=== PATIENT | male | born 1975 | race Caucasian/White ===

== ENCOUNTER → 2017-07-27 17:12 | Outpatient (CLI) | payer BC, SELFPAY ==
[2017-07-27 18:03] LABS: Absolute Lymphocyte Count 4.02 X10^3/ul (0.83-4.51); Absolute Neutrophil Count 3.6 X10^3/uL (2.0-7.7); Basophil# 0.02 X10^3/uL; Basophil% 0.2 % (0-1); Eosinophil# 0.37 X10^3/uL; Eosinophils% 4.3 % (0-5); Hemoglobin 14.1 g/dl (13.0-16.5); Lymphocyte # 4.02 X10^3/ul (4.0); Lymphocyte % 46.8 % (19-41); Mean Corp Hgb Conc 33.6 g/gl (32-36); Mean Corpuscular Hgb 31.7 pg (27.0-32.0); Mean Corpuscular Volume 94.4 fL (80-94); Mean Platelet Vol. 9.4 fl (6.2-12.0); Monocyte# 0.54 X10^3/uL; Monocyte% 6.3 % (0-10); Neutrophil # 3.64 X10^3/uL (2.7-7.7); Neutrophil % 42.4 % (47-70); Platelet Count 195 K/mm3 (150-450); RBC Distribution Width CV 12.7 % (11.6-14.6); RBC Distribution Width SD 43.9 fl (35.1-43.9); Red Blood Count 4.45 M/mm3 (4.6-6.2); White Blood Count 8.6 K/mm3 (4.4-11.0)
[2017-07-27 18:16] LABS: POSITIVE COUNT NO; POSITIVE DIFFERENTIAL NO; POSITIVE MORPHOLOGY NO
[2017-07-27 18:41] LABS: Anion Gap 7 (5-15); BUN 13 mg/dL (7-18); BUN/Creat Ratio 16.2 RATIO (10-20); Calcium,Total 8.3 mg/dL (8.5-10.1); Chloride 110 mmol/L (98-107); EST Glomerular Filtration Rate 113 mL/min (>60); Est Glom Filt Rate - Afr Amer 137 mL/min (>60); Glucose 79 mg/dL (74-106); Magnesium 2.3 mg/dL (1.6-2.6); Potassium 3.7 mmol/L (3.5-5.1); Sodium Level 142 mmol/L (136-145); T4 Free Direct 0.95 ng/dL (0.76-1.46); Thyroid Stim Hormone (TSH) 0.74 uIU/mL (0.358-3.74)
== END ==
PROVIDERS: Family Provider Family Medicine; PCP Family Medicine; Visit Provider Family Medicine
DX: R55 Syncope and collapse (principal)
CPT/HCPCS: 36415; 80048; 83735; 84439; 84443; 85025

== ENCOUNTER 2017-10-02 19:20 | Emergency (ER) | payer BC, SELFPAY ==
[2017-10-02 19:21] VITALS: BP 112/68; PULSE 62; RESP 18; TEMP 37.1; O2SAT 99; BMI 25.1
--- NOTE | 2017-10-02 20:20 | ED.VISSUMM ---
- ER Visit Summary Date of Service: 10/02/17 Chief Complaint: Leg injury History of Present Illness: The patient is a 42 M was walking at a hardware store today when a nail in a pocket caused a laceration to his lateral right leg. He also states he believes he got stung on his dorsum of his left hand by a horse fly this morning. He states that his left hand is swollen. Denies any redness or fevers. States he does not have an allergy that he knows of. Last tetanus is unknown Physical Examination: Afebrile vital signs are stable Left hand is diffusely swollen there is no erythema. I do not see an obvious stinger. There is no lymphangitis Lateral distal right leg demonstrates a 2.5 cm partial-thickness laceration. There is no active bleeding. Emergency Department Course and Treatment: Tetanus was updated. Wound was washed with Shur-Clens and closed with Dermabond. Patient was advised on ice and Benadryl for the local reaction of the left hand. Return if worsening or concerns Impression: 1. 2.5 cm right leg laceration with repair 2. Hymenoptera envenomation with local reaction to the left hand 3. Tetanus update This note was generated with [employer] dictation software. It may contain incorrect words, spelling, and punctuation that were not noted in review of the chart prior to signing ED Disposition - Plan for ED Patient: Disposition: Home or Assisted Living Chief Complaint: Wound Instructions: ED Bite Sting Insect Local Allergic React, ED Laceration Ext Skin Glue Referrals: Armond Moss DO [Primary Care Provider] - As Needed
[2017-10-02 20:37] VITALS: PULSE 60; RESP 16
--- NOTE | 2017-10-02 20:37 | NURSING ---
NO REACTION NOTED FROM TD.
== END 2017-10-02 20:37 | disposition home or self-care (01) ==
LOC: ED 20:31
PROVIDERS: Emergency Provider Emergency Medicine; Family Provider Family Medicine; PCP Family Medicine
DX: S81.811A Laceration without foreign body, right lower leg, initial encounter (principal); W45.0XXA Nail entering through skin, initial encounter; Y93.01 Activity, walking, marching and hiking; Y92.512 Supermarket, store or market as the place of occurrence of the external cause; T63.441A Toxic effect of venom of bees, accidental (unintentional), initial encounter; M79.89 Other specified soft tissue disorders
CPT/HCPCS: 12001; 90715; 99283

== ENCOUNTER 2018-01-24 20:19 | Emergency (ER) | payer BC, SELFPAY ==
[2018-01-24 20:19] VITALS: BP 124/73; PULSE 77; RESP 16; TEMP 36.6; O2SAT 98; BMI 25.2
[2018-01-24 21:09] VITALS: RESP 16
--- NOTE | 2018-01-24 21:38 | CT_ITS ---
STUDY: CT BRAIN WITHOUT CONTRAST REASON FOR EXAM: Male, 42 years old. Left side paresthesias. RADIATION DOSAGE (If Supplied By Facility): CTDIvol = ( 44.99 ) mGy, DLP = ( 745.49 ) mGycm TECHNIQUE: Transaxial CT imaging of the brain was performed without administration of intravenous contrast material. Individualized dose optimization techniques were used for this CT. COMPARISON: None. FINDINGS: Normal soft tissue structures. Normal calvarium. Normal size ventricles and extra-axial spaces for the patient's age. Normal white matter tracts of the cerebral hemispheres. Normal basal ganglia and thalami. Normal brainstem. Normal cerebellum. There is no intracranial hemorrhage. There are no findings of an acute ischemic infarction. Normal visualized paranasal sinuses. CT/Brain/Head without Contrast IMPRESSION: Normal unenhanced CT scan of the brain. Electronically Signed: Bianca Reyes MD at 22:33 EDT Tel , Service support ,
--- NOTE | 2018-01-24 22:58 | ED.DCSUM_ITS ---
- ER Visit Summary Date of Service: 01/24/18 Chief Complaint: [Numbness and tingling to left face] History of Present Illness: The patient is a 42 M [sense to emergency department with complaint of numbness to the left side of his face that started initially yesterday. Patient states the numbness would come and go]. Patient states the odd sensation to the left side of his face is now continuous over the last 5 hours. Patient also mentions that he has some lesions to the roof of his mouth that he has had for about a week. Denies any fever or recent illness. He denies sore throat. Patient denies any headache currently. He denies any weakness in extremities. He denies any falls or head injuries. He denies any weight loss. Patient does state that he has been getting headaches about twice a week. No family history of brain tumors or aneurysms. Physical Examination: [HEENT-PERRLA, EOMI. Cranial nerves II through XII grossly intact. TMs clear. Mucous membranes moist. No adenopathy. Patient has slight decreased sensation left side of the face compared to the right side of the face. No facial droop noted. Patient is able to wrinkle both sides of the forehead. Evaluation of the roof of the mouth does reveal some small shallow ulcerations. Cardiovascular-regular rate and rhythm without murmur or ectopy Lungs-clear to auscultation, chest wall stable without crepitus or subcu emphysema Abdomen-normoactive bowel sounds, soft, nontender, no rebound or rigidity, no peritoneal signs. Neuro plfr-[id number] and heel moreno testing within normal limits, negative Romberg, negative pronator, fundi benign Extremities-intact ?4, normal range of motion, normal pulses, atraumatic] Test Results: [CT scan of the brain without contrast was read as normal.] Emergency Department Course and Treatment: [Patient will be started on prednisone.] Treatment Plan: [Patient will be treated with prednisone and Famvir. Patient will be referred to ENT for follow-up. Etiologies of symptoms is unclear however it is possible he may be developing a Abreu's palsy. I believe the ulcerations of the roof of the mouth may be viral in etiology. 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 It may contain incorrect words, spelling, and punctuation that were not noted in review of the chart prior to signing ED Disposition - Plan for ED Patient: Chief Complaint: Other, Pain/Inj Referrals: Armond Moss DO [Primary Care Provider] -
--- NOTE | 2018-01-24 22:58 | ED.DEP ---
ED Disposition - Plan for ED Patient: Chief Complaint: Other, Pain/Inj Instructions: ED [place] Palsy, ED Paraesthesias Prescriptions: Prednisone [Deltasone] 20 mg PO BID #14 tab Famciclovir [Famvir] 500 mg PO TID #21 tab Referrals: Armond Moss DO [Primary Care Provider] - Danilo Alcantara MD [STAFF PHYSICIAN] - 3-5 Days
[2018-01-24 23:09] VITALS: BP 130/72; PULSE 75; RESP 16; O2SAT 100
== END 2018-01-24 23:10 | disposition home or self-care (01) ==
LOC: ED 21:52
PROVIDERS: Emergency Provider Emergency Medicine; Family Provider Family Medicine; PCP Family Medicine
DX: R20.2 Paresthesia of skin (principal); K13.79 Other lesions of oral mucosa; Z72.0 Tobacco use
CPT/HCPCS: 70450; 99282

== ENCOUNTER → 2018-04-23 16:13 | Outpatient (CLI) | payer BC, SELFPAY ==
--- NOTE | 2018-04-23 16:16 | RAD_ITS ---
HISTORY: tobacco abuse EXAM: XR Chest 2 Views: COMPARISON: None FINDINGS: Normal heart size. An azygous lobe is present. Mild hyperinflation. No vascular congestion, pleural effusion, or acute pulmonary infiltration. No pneumothorax. The bony thorax appears intact. RAD/Chest PA and Lateral IMPRESSION: 1. No acute cardiopulmonary disease. 2. Mild hyperinflation. at 0736 Reported and signed by: Tre Foster MD Electronically Signed: Tre Foster, at 7:34 EST Tel , Service support ,
--- OUTSIDE RECORDS SUMMARY | 2018-07-28 07:11 | XMS RPT_ITS ---
:1975 Author Organization OH[facility] Care Team Providers Name Role Phone Armond Moss Attending Unavailable Armond Moss Referring Unavailable Armond Moss Primary Care Unavailable Armond Moss Attending Unavailable Armond Moss Referring Unavailable Armond Moss Primary Care Unavailable Armond Moss Primary Care Unavailable Kendall Mobley Attending Unavailable Armond Moss Primary Care Unavailable Danya Rajan Attending Unavailable PROBLEMS PROBLEMS DATE TYPE CONDITION / CODE ATTENDING STATUS SOURCE 07/27/2017 Unknown R55 - Syncope Armond Moss Active [place] and collapse / Community R55(ICD-10) Hospital Repository PROCEDURES PROCEDURES No Procedure Records FoundRESULTS RESULTS CHEST PA AND LATERAL Observed: 04/23/2018 Status: F Source: [place]UA 4:16 PM REPOSITORY [facility] Imaging Services [address] [place] [address] Chest PA and Lateral MR#: [id number] Acct: [id number] Name: BRET LOZANO Rep #: [id number] : 1975 M 43 From: Tre Foster MD PCP: Armond Moss DO Status: REG CLI Study: Chest PA and Lateral Date of Exam: 04/23/18 Exam# [id number] Ordering Dr: Armond Moss DO HISTORY: tobacco abuse EXAM: XR Chest 2 Views: COMPARISON: None FINDINGS: Normal heart size. An azygous lobe is present. Mild hyperinflation. No vascular congestion, pleural effusion, or acute pulmonary infiltration. No pneumothorax. The bony thorax appears intact. RAD/Chest PA and Lateral IMPRESSION: 1. No acute cardiopulmonary disease. 2. Mild hyperinflation. at 0736 Reported and signed by: Tre Foster MD Electronically Signed: Tre Foster, at 7:34 EST Tel , Service support , CC: Armond Moss DO Gas Well Pumper: Signed DISCHARGE INSTRUCTION Observed: 01/24/2018 Status: F Source: [place] 11:00 PM REPOSITORY [facility] Medical Records Department [address] [place] [address] Discharge Instruction 01/24/18 2258 MR#: [id number] Acct: [id number] Name: BRET LOZANO Rep #: [id number] : 1975 42 From: Danya Rajan DO PCP: Armond Moss DO Status: REG ER ED Disposition - Plan for ED Patient: Chief Complaint: Other, Pain/Inj Instructions: ED [place] Palsy, ED Paraesthesias Prescriptions: Prednisone [Deltasone] 20 mg PO BID #14 tab Famciclovir [Famvir] 500 mg PO TID #21 tab Referrals: Armond Moss DO [Primary Care Provider] - Danilo Alcantara MD [STAFF PHYSICIAN] - 3-5 Days What to do if you have Problems For any increased pain, shortness of breath, bleeding, nausea or vomiting, chest pain, or any unexpected problems, contact your Primary Care Provider. Call [facility] ([phone]) or report to the closest Emergency Room. Call 911 if necessary. 01/24/18 2300 <Electronically signed by Danya Rajan DO> Date Danya Rajan DO Cosigner Signature (If Indicated): Date CC: Armond Moss DO EMERGENCY DEPARTMENT Observed: 01/24/2018 Status: F Source: [place] SUMMARY 10:58 PM REPOSITORY [facility] Medical Records Department [address] [place] [address] Emergency Department Summary 01/24/18 2254 MR#: [id number] Acct: [id number] Name: BRET LOZANO Rep #: [id number] : 1975 42 From: Danya Rajan DO PCP: Armond Moss DO Status: REG ER - ER Visit Summary Date of Service: 01/24/18 Chief Complaint: [Numbness and tingling to left face] History of Present Illness: The patient is a 42 M [sense to emergency department with complaint of numbness to the left side of his face that started initially yesterday. Patient states the numbness would come and go]. Patient states the odd sensation to the left side of his face is now continuous over the last 5 hours. Patient also mentions that he has some lesions to the roof of his mouth that he has had for about a week. Denies any fever or recent illness. He denies sore throat. Patient denies any headache currently. He denies any weakness in extremities. He denies any falls or head injuries. He denies any weight loss. Patient does state that he has been getting headaches about twice a week. No family history of brain tumors or aneurysms. Physical Examination: [HEENT-PERRLA, EOMI. Cranial nerves II through XII grossly intact. TMs clear. Mucous membranes moist. No adenopathy. Patient has slight decreased sensation left side of the face compared to the right side of the face. No facial droop noted. Patient is able to wrinkle both sides of the forehead. Evaluation of the roof of the mouth does reveal some small shallow ulcerations. Cardiovascular-regular rate and rhythm without murmur or ectopy Lungs-clear to auscultation, chest wall stable without crepitus or subcu emphysema Abdomen-normoactive bowel sounds, soft, nontender, no rebound or rigidity, no peritoneal signs. Neuro [id number] and heel moreno testing within normal limits, negative Romberg, negative pronator, fundi benign Extremities-intact 4, normal range of motion, normal pulses, atraumatic] Test Results: [CT scan of the brain without contrast was read as normal.] Emergency Department Course and Treatment: [Patient will be started on prednisone.] Treatment Plan: [Patient will be treated with prednisone and Famvir. Patient will be referred to ENT for follow-up. Etiologies of symptoms is unclear however it is possible he may be developing a Abreu's palsy. I believe the ulcerations of the roof of the mouth may be viral in etiology. 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 It may contain incorrect words, spelling, and punctuation that were not noted in review of the chart prior to signing ED Disposition - Plan for ED Patient: Chief Complaint: Other, Pain/Inj Referrals: Armond Moss, DO [Primary Care Provider] - What to do if you have Problems For any increased pain, shortness of breath, bleeding, nausea or vomiting, chest pain, or any unexpected problems, contact your Primary Care Provider. Call [facility] ([phone]) or report to the closest Emergency Room. Call 911 if necessary. 01/24/18 8302 <Electronically signed by Danya Rajan DO> Date Danya Rajan DO Cosigner Signature (If Indicated): Date CC: Armond Moss DO BRAIN/HEAD WITHOUT Observed: 01/24/2018 Status: F Source: [place] CONTRAST 9:39 PM REPOSITORY [facility] Imaging Services [address] [place] [address] Brain/Head without Contrast MR#: [id number] Acct: [id number] Name: BRET LOZANO Rep #: [id number] : 1975 M 42 From: Bianca Reyes MD PCP: Armond Moss DO Status: REG ER Study: Brain/Head without Contrast Date of Exam: 01/24/18 Exam# [id number] Ordering Dr: Danya Rajan DO STUDY: CT BRAIN WITHOUT CONTRAST REASON FOR EXAM: Male, 42 years old. Left side paresthesias. RADIATION DOSAGE (If Supplied By Facility): CTDIvol = ( 44.99 ) mGy, DLP = ( 745.49 ) mGycm TECHNIQUE: Transaxial CT imaging of the brain was performed without administration of intravenous contrast material. Individualized dose optimization techniques were used for this CT. COMPARISON: None. FINDINGS: Normal soft tissue structures. Normal calvarium. Normal size ventricles and extra-axial spaces for the patient's age. Normal white matter tracts of the cerebral hemispheres. Normal basal ganglia and thalami. Normal brainstem. Normal cerebellum. There is no intracranial hemorrhage. There are no findings of an acute ischemic infarction. Normal visualized paranasal sinuses. CT/Brain/Head without Contrast IMPRESSION: Normal unenhanced CT scan of the brain. Electronically Signed: Bianca Reyes MD at 22:33 EDT Tel , Service support , CC: Armond Moss DO; Danya Rajan DO Gas Well Pumper: Signed EMERGENCY DEPARTMENT Observed: 10/03/2017 Status: F Source: [place] SUMMARY 1:26 AM REPOSITORY [facility] Medical Records Department [address] [place] [address] Emergency Department Summary 10/02/172019 MR#: [id number] Acct: [id number] Name: BRET LOZANO Rep #: [id number] : 1975 42 From: Kendall Mobley DO PCP: Armond Moss DO Status: DEP ER - ER Visit Summary Date of Service: 10/02/17 Chief Complaint: Leg injury History of Present Illness: The patient is a 42 M was walking at a hardware store today when a nail in a pocket caused a laceration to his lateral right leg. He also states he believes he got stung on his dorsum of his left hand by a horse fly this morning. He states that his left hand is swollen. Denies any redness or fevers. States he does not have an allergy that he knows of. Last tetanus is unknown Physical Examination: Afebrile vital signs are stable Left hand is diffusely swollen there is no erythema. I do not see an obvious stinger. There is no lymphangitis Lateral distal right leg demonstrates a 2.5 cm partial-thickness laceration. There is no active bleeding. Emergency Department Course and Treatment: Tetanus was updated. Wound was washed with Shur-Clens and closed with Dermabond. Patient was advised on ice and Benadryl for the local reaction of the left hand. Return if worsening or concerns Impression: 1. 2.5 cm right leg laceration with repair 2. Hymenoptera envenomation with local reaction to the left hand 3. Tetanus update This note was generated with Makoondi dictation software. It may contain incorrect words, spelling, and punctuation that were not noted in review of the chart prior to signing ED Disposition - Plan for ED Patient: Disposition: Home or Assisted Living Chief Complaint: Wound Instructions: ED Bite Sting Insect Local Allergic React, ED Laceration Ext Skin Glue Referrals: Armond Moss DO [Primary Care Provider] - As Needed What to do if you have Problems For any increased pain, shortness of breath, bleeding, nausea or vomiting, chest pain, or any unexpected problems, contact your Primary Care Provider. Call [facility] ([phone]) or report to the closest Emergency Room. Call 911 if necessary. 10/03/17 0126 <Electronically signed by Kendall Mobley DO> Date Kendall Mobley DO Cosigner Signature (If Indicated): Date CC: Armond Moss DO CBC W/DIFF, AUTOMATED Collected: 07/27/2017 Status: F Source: [place] 5:26 PM REPOSITORY TYPE CODE TESTS RESULT OUT OF RANGE REFERENCE UNITS LAB L100.1000 4.4-11.0 K/mm3 Normal WBC 8.6 LAB L100.1200 4.6-6.2 M/mm3 Low RBC 4.45 LAB L100.1300 13.0-16.5 g/dl Normal HGB 14.1 LAB L100.1400 40-54 % Normal HCT 42.0 LAB L100.1500 80-94 fL High MCV 94.4 LAB L100.1600 27.0-32.0 pg Normal MCH 31.7 LAB L100.1700 32-36 g/gl Normal MCHC 33.6 LAB L100.1810 11.6-14.6 % Normal RDW CV 12.7 LAB L100.1820 35.1-43.9 fl Normal RDW SD 43.9 LAB L100.1900 150-450 K/mm3 Normal PLT 195 LAB L100.2000 6.2-12.0 fl Normal MPV 9.4 LAB L100.2100 47-70 % Low NEUT% 42.4 LAB L100.2200 19-41 % High LY% 46.8 LAB L100.2300 0-10 % Normal MONO% 6.3 LAB L100.2400 0-5 % Normal EO% 4.3 LAB L100.2500 0-1 % Normal BASO% 0.2 LAB L100.2550 0.0-0.9 % Normal IM GRAN % 0.000 Result Comment: IG% - Immature Granulocytes (promyelocytes, myelocytes and metamyelocytes) > 1% indicates that a LEFT SHIFT is Present. LAB L100.2620 2.0-7.7 X10 3/uL Normal Absolute Neut 3.6 LAB L100.2720 0.83-4.51 X10 3/ul Normal Absolute Lymph 4.02 Performed By: #### L100.0100 #### [facility] [address] [facility] [place], [place], [address] BASIC METABOLIC Collected: 07/27/2017 Status: F Source: [place] PROFILE (BMP) 5:26 PM REPOSITORY Order Comment: Has Patient had X-rays with Contrast this admission? N Is Patient on Heparin? N TYPE CODE TESTS RESULT OUT OF RANGE REFERENCE UNITS LAB L501.0100 74-106 mg/dL Normal GLU 79 Result Comment: Please note revised GLUCOSE reference range effective 2017. LAB L501.1000 7-18 mg/dL Normal BUN 13 LAB L501.1100 0.70-1.30 mg/dL Normal CREAT,SERUM 0.80 Result Comment: The validity of the calculated GFR AND GFRAA in patients over 70 years has not been determined. Clinical correlation is essential. LAB L501.1110 >60 mL/min Normal EST GFR 113 Result Comment: Non- GFR Calc LAB L501.1115 >60 mL/min Normal EST GFR - AA 137 Result Comment: GFR Calc LAB L501.1300 10-20 RATIO Normal BUN/CRE 16.2 LAB L501.2200 8.5-10.1 mg/dL Low CA 8.3 LAB L501.5300 136-145 mmol/L NA Normal 142 LAB L501.5600 3.5-5.1 mmol/L K Normal 3.7 LAB L501.5900 98-107 mmol/L High CL 110 LAB L501.6100 21.0-32.0 mmol/L Normal CO2 25.0 LAB L501.6200 5-15 Normal GAP 7 Performed By: #### L500.2500, L501.5200, L501.9520, L506.0400 #### [facility] [address] [place], [address] MAGNESIUM Collected: 07/27/2017 Status: F Source: [place] 5:26 PM REPOSITORY Order Comment: Has Patient had X-rays with Contrast this admission? N Is Patient on Heparin? N TYPE CODE TESTS RESULT OUT OF RANGE REFERENCE UNITS LAB L501.5200 1.6-2.6 mg/dL Normal MG 2.3 Result Comment: Please note revised Magnesium reference range effective 2017. Performed By: #### L500.2500, L501.5200, L501.9520, L506.0400 #### [facility] [address] [place], [address] THYROID STIM HORMONE Collected: 07/27/2017 Status: F Source: [place] (TSH) 5:26 PM REPOSITORY Order Comment: Has Patient had X-rays with Contrast this admission? N Is Patient on Heparin? N TYPE CODE TESTS RESULT OUT OF RANGE REFERENCE UNITS LAB L501.9520 0.358-3.74 uIU/mL Normal TSH 0.74 Performed By: #### L500.2500, L501.5200, L501.9520, L506.0400 #### [facility] [address] [place], [address] T4 FREE DIRECT Collected: 07/27/2017 Status: F Source: [place] 5:26 PM REPOSITORY Order Comment: Has Patient had X-rays with Contrast this admission? N Is Patient on Heparin? N TYPE CODE TESTS RESULT OUT OF RANGE REFERENCE UNITS LAB L506.0400 0.76-1.46 ng/dL Normal T4 FREE 0.95 DIRECT Performed By: #### L500.2500, L501.5200, L501.9520, L506.0400 #### [facility] [address] [place], [address] ALLERGIES ALLERGIES DATE TYPE / CODE NAME / CODE REACTION SEVERITY SOURCE 01/24/2018 Drug No Known Unknown [facility] Allergy/4160 Allergies/F00 Hospital 24053(SNOMED 2931339(RXNOR Repository CT) M) ENCOUNTERS ENCOUNTERS ADMIT/DISCHARGE ACCOUNT ADMITTING ENCOUNTER LOCATION SOURCE NUMBER CLASS 04/23/2018 [id number] Ambulatory [place] 4 [facility] ing:MTRAD Repository 01/24/2018/ [id number] Emergency [place] 8 4 [facility] ing:ED Repository 10/02/2017/ [id number] Emergency Hua [place] 8 3 [facility] ing:ED Repository 07/27/2017 [id number] Ambulatory [place] 5 [facility] ing:LAB Repository PAYERS PAYERS ENCOUNTER GUARANTOR PAYER SUBSCRIBER SOURCE 04/23/2018 BRET K Primary BRET K Hua [id number] Insurance:ANTHEMPolic [place]: Community TERE [id number] [id number] Repository [address]Llk: (330) Date:[phone] () NED [place] [id number]: 04/23/2018 Secondary NOT GIVENUNK [place] Insurance:SELF PAY [facility] Number: Effective Repository Date:2018-04-23 01/24/2018 BRET K Primary BRET K [place] [id number] Insurance:ANTHEMPolic [place]: Community TERE [place]: [id number] [id number] Repository [address]Ahe: (330) Date:4404-87-73LI [phone] () [id number] MCINTOSH [address]AL: 01/24/2018 Secondary NOT GIVENUNK [place] Insurance:SELF PAY [facility] Number: Effective Repository Date:2018-01-24 10/02/2017 BRET K Primary BRET K [place] [id number] Insurance:ANTHEMPolic [place]: Community Tere y Number: [id number] [id number] Repository [address]Jga: (330) Date:5908-33-53[phone] () NED [place] [id number]: 10/02/2017 Secondary NOT GIVENUNK [place] Insurance:SELF PAY [facility] Number: Effective Repository Date:2017-10-02 07/27/2017 BRET [place] Primary BRET [id number] Insurance:ANTHEMPolic [place]: Community Tere y Number: [id number] [id number] Repository [address]Rry: 330) Date:5130-77-62VX [phone] () [id number], [place] [address]ND: 07/27/2017 Secondary NOT GIVENUNK [place] Insurance:SELF PAY [facility] Number: Effective Repository Date:2017-07-27
== END ==
PROVIDERS: Family Provider Family Medicine; PCP Family Medicine; Referring Provider Family Medicine; Visit Provider Family Medicine
DX: R05 Cough (principal); Z72.0 Tobacco use
CPT/HCPCS: 71046

== ENCOUNTER 2018-06-17 09:49 | Emergency (ER) | payer BC, SELFPAY ==
[2018-06-17 09:50] VITALS: BP 108/72; PULSE 60; RESP 18; TEMP 36.6; O2SAT 98; BMI 24.3
--- NOTE | 2018-06-17 10:06 | CT_ITS ---
STUDY: CT ABDOMEN AND PELVIS WITHOUT CONTRAST REASON FOR EXAM: Male, 43 years old. Right flank pain. RADIATION DOSAGE (If Supplied By Facility): CTDIvol = ( 7.15 ) mGy, DLP = ( 337.53 ) mGycm TECHNIQUE: Transaxial images were obtained from the dome of the diaphragm to the symphysis pubis without oral contrast, and without intravenous contrast. Sagittal and coronal images were reconstructed. Individualized dose optimization techniques were used for this CT. COMPARISON: None. FINDINGS: Minimal increased markings at the lung bases suggestive of atelectasis. The visualized portions of the heart are within normal limits. Normal liver. Normal gallbladder and extrahepatic biliary system. Normal spleen. Normal pancreas. Normal bilateral adrenal glands. Normal right kidney. A 2 mm calcification is seen in the right hemipelvis. This appears to lie outside the ureter. This most likely represents a phlebolith. Normal left kidney. Normal visualized stomach. Normal small intestine. Normal colon. The appendix is visualized and appears normal. Normal abdominal aorta. Normal inferior vena cava. Normal retroperitoneum. Normal urinary bladder. There is a small umbilical hernia containing fat. Spondylolysis of the pars interarticularis of the L5 vertebra. CT/Abdomen/Pelvis without Cont IMPRESSION: 2 mm calcification in the right hemipelvis which appears to lie outside the ureter. This most likely represents a phlebolith. Spondylolysis of the pars interarticularis at the L5 vertebrae Electronically Signed: Dilan Fried MD at 11:25 EST , Service support ,
[2018-06-17 10:29] LABS: Absolute Lymphocyte Count 3.33 X10^3/ul (0.83-4.51); Absolute Neutrophil Count 4.3 X10^3/uL (2.0-7.7); Basophil# 0.02 X10^3/uL; Basophil% 0.2 % (0-1); Eosinophil# 0.26 X10^3/uL; Eosinophils% 3.2 % (0-5); Hematocrit 45.1 % (40-54); Hemoglobin 15.3 g/dl (13.0-16.5); Lymphocyte # 3.33 X10^3/ul (4.0); Lymphocyte % 40.9 % (19-41); Mean Corp Hgb Conc 33.9 g/gl (32-36); Mean Corpuscular Hgb 32.2 pg (27.0-32.0); Mean Corpuscular Volume 94.9 fL (80-94); Mean Platelet Vol. 9.3 fl (6.2-12.0); Monocyte# 0.28 X10^3/uL; Monocyte% 3.4 % (0-10); Neutrophil # 4.25 X10^3/uL (2.7-7.7); Neutrophil % 52.2 % (47-70); Platelet Count 189 K/mm3 (150-450); RBC Distribution Width CV 12.4 % (11.6-14.6); RBC Distribution Width SD 43.1 fl (35.1-43.9); Red Blood Count 4.75 M/mm3 (4.6-6.2); White Blood Count 8.2 K/mm3 (4.4-11.0)
[2018-06-17 10:31] LABS: Bacteria 0 SEEN /hpf (None Seen); Mucous, Urine 0 SEEN /hpf (<or=2+); Red Blood Cells-Urine 0 SEEN /hpf (0-5); Squamous Epithelial Cells - UA 0 SEEN /hpf (0-5); White Blood Cells 0 SEEN /hpf (0-5)
[2018-06-17 10:31] LABS: POSITIVE COUNT NO; POSITIVE DIFFERENTIAL NO; POSITIVE MORPHOLOGY NO
[2018-06-17 10:36] LABS: Color, Urine Yellow (Yellow); Glucose, Dipstick Normal (Normal); Ketone-Dipstick Negative (Negative); Leukocyte Esterase-Dipstick Negative /ul (Negative); Nitrite-Dipstick Negative (Negative); Occult Blood-Urine Negative /ul (Negative); Protein-Dipstick Negative (Negative); Specific Gravity, Urine 1.015 (1.002-1.030); Urine Bilirubin Dipstick Negative (Negative); Urine Clarity Clear (Clear); Urine Urobilinogen Normal (Normal)
[2018-06-17 10:45] LABS: Anion Gap 7 (5-15); BUN 10 mg/dL (7-18); BUN/Creat Ratio 11.1 RATIO (10-20); Calcium,Total 8.7 mg/dL (8.5-10.1); Chloride 106 mmol/L (98-107); EST Glomerular Filtration Rate 99 mL/min (>60); Est Glom Filt Rate - Afr Amer 120 mL/min (>60); Estimated Creatinine Clearance 111.53 ml/min; Glucose 72 mg/dL (74-106); Potassium 4.1 mmol/L (3.5-5.1); Sodium Level 139 mmol/L (136-145)
--- NOTE | 2018-06-17 12:17 | ED.DCSUM_ITS ---
- ER Visit Summary Date of Service: 06/17/18 Chief Complaint: Pain History of Present Illness: The patient is a 43 M with right flank pain. This started 2 days ago, in the evening. It came on suddenly. It does not radiate. It is constant. He does have urinary frequency but denies any other urinary symptoms. No history of this in the past. No abdominal or GI symptoms. No weakness or numbness. No traumas or inciting events. Physical Examination: Afebrile and vital signs unremarkable. Alert and oriented, uncomfortable but no acute distress. Skin appears normal without rash. Spine nontender. Right flank tender to palpation. Abdomen soft and nontender. Exam otherwise unremarkable. Test Results: CBC, BMP, urinalysis unremarkable. CT abdomen showed a 2 mm calculus which appears to be outside the right ureter, likely a phlebolith. He also has spondylosis of L5. Emergency Department Course and Treatment: Patient declined pain medicine. His symptoms were concerning for ureteral colic. CT shows a calculus but it appears to be outside the ureter. Even if it is, it is 2 mm and unlikely to need any kind of surgery or procedure. It would likely pass spontaneously. He has no other findings to suggest he has a kidney stone. Urinalysis is unremarkable. Lab work is all reassuring. Vitals are reassuring. Patient is appropriate for outpatient follow-up. He would like to continue taking ibuprofen. Follow-up with primary care. Return right away for any new or worsening issues. Treatment Plan: Above Disposition: Discharge Impression: 1. Right flank pain This note was generated with [employer] dictation software. It may contain incorrect words, spelling, and punctuation that were not noted in review of the chart prior to signing ED Disposition - Plan for ED Patient: Referrals: Armond Moss DO [Primary Care Provider] -
--- NOTE | 2018-06-17 12:17 | ED.DEP ---
ED Disposition - Plan for ED Patient: Instructions: ED Flank Pain Uncertain Cause Referrals: Armond Moss DO [Primary Care Provider] -
[2018-06-17 12:43] VITALS: BP 110/73; PULSE 58; RESP 14; RESP 17
== END 2018-06-17 12:44 | disposition home or self-care (01) ==
PROVIDERS: Emergency Provider Emergency Medicine; Family Provider Family Medicine; PCP Family Medicine
DX: R10.9 Unspecified abdominal pain (principal); Z72.0 Tobacco use
CPT/HCPCS: 74176; 80048; 81001; 85025; 99284; A4216

== ENCOUNTER 2020-08-10 13:05 | Outpatient (RCR) | payer BC, SELFPAY | END 2020-10-16 23:59 | LOC: IMMUN 13:05 | PROVIDERS: PCP Family Medicine; Visit Provider Family Medicine | DX: Z23 Encounter for immunization (principal) | CPT/HCPCS: 0001A; 0002A; 91300 ==